=== PATIENT | female | born 1945 | race Two or more races ===

== ENCOUNTER 2017-04-26 10:07 | Emergency (ER) | payer MEDICARE, MEDICAID ==
[~2017-04-26] VITALS: Ht 160 cm; Wt 53.7 kg
[2017-04-26 10:10] VITALS: BP 139/76
[2017-04-26 12:35] LABS: BLOOD UREA NITROGEN 14 mg/dL (7-18)
[2017-04-26] MEDS ORDERED: OMNIPAQUE 350 MG/ML, 75ML BOTTLE ONE (13:32)
== END 2017-04-26 14:22 | disposition home or self-care (01) ==
LOC: ED 10:40
DX: R05 Cough (principal); R59.9 Enlarged lymph nodes, unspecified; J44.9 Chronic obstructive pulmonary disease, unspecified; Z87.891 Personal history of nicotine dependence
CPT/HCPCS: 36415; 71020; 71260; 80048; 85025; 99285; Q9967

== ENCOUNTER → 2017-06-05 | Outpatient (CLI) | payer MEDICARE, MEDICAID ==
[2017-06-05 08:10] LABS: HEMATOCRIT 45.3 % (34.6-47.8); HEMOGLOBIN 15.2 g/dL (11.7-16.4); WHITE BLOOD COUNT 6.4 x10^3/uL (3.4-10)
[2017-06-05 08:22] LABS: BLOOD UREA NITROGEN 13 mg/dL (7-18)
[2017-06-05 08:47] LABS: ASPARTATE AMINO TRANSFERASE 15 U/L (15-37)
[2017-06-05 08:55] LABS: HIV 1&2 ANTIBODY SCREEN Nonreactive (Nonreactive); HIV-1 p24 ANTIGEN Nonreactive (Nonreactive)
== END | disposition home or self-care (01) ==
LOC: LAB 07:50
PROVIDERS: ATTEND Physician Assistant
DX: Z11.3 Encounter for screening for infections with a predominantly sexual mode of transmission (principal); E78.4 Other hyperlipidemia; R09.02 Hypoxemia; R41.3 Other amnesia; I10 Essential (primary) hypertension
CPT/HCPCS: 36415; 80053; 80061; 82607; 82746; 83880; 84439; 84443; 85025; 86592; 86703; 86803; 87899; G0435